=== PATIENT | male | born 1995 | race Caucasian/White ===

== ENCOUNTER 2020-01-01 17:11 | Emergency (ER) | payer MEDICAID, SELFPAY ==
[2020-01-01 17:54] VITALS: BP 101/70; PULSE 100; RESP 16; O2SAT 98; BMI 32.3
[2020-01-01 18:00] LABS: Adenovirus,PCR Not Detected (NotDetected); Bordetella Pertussis Not Detected (NotDetected); Chlamydophila Pneumoniae, PCR Not Detected (NotDetected); Coronavirus 19, PCR Not Detected (NotDetected); Coronavirus 229E Not Detected (NotDetected); Coronavirus NL63 Not Detected (NotDetected); Coronavirus OC43 Not Detected (NotDetected); Coronovirus HKU1,PCR Not Detected (NotDetected); Human Metapneumovirus Not Detected (NotDetected); Influenza A, PCR Not Detected (NotDetected); Influenza AH1, 2009 Not Detected (NotDetected); Influenza AH1, PCR Not Detected (NotDetected); Influenza AH3,PCR Not Detected (NotDetected); Influenza B, PCR Not Detected (NotDetected); Mycoplasma Pneumoniae, PCR Not Detected (NotDetected); Parainfluenza 1, PCR Not Detected (NotDetected); Parainfluenza 2, PCR Not Detected (NotDetected); Parainfluenza 3, PCR Not Detected (NotDetected); Parainfluenza 4, PCR Not Detected (NotDetected); Respiratory Syncytial Virus Not Detected (NotDetected); Rhinovirus/Enterovirus Not Detected (NotDetected)
--- NOTE | 2020-01-01 18:02 | HMH.EDUTC ---
[facility] [place] Clinical Impression: Encounter by telehealth for suspected COVID-19 Disposition: Home, Self-Care Condition on Discharge: Good Instructions: Preventing the Spread of Coronavirus Discharge Instructions Additional Instructions: *Monitor Temp, Over the counter Motrin or Tylenol as directed/as needed Tylenol every 4 hours and Motrin every 6 hours (as long as your family doctor has told you that you can take it) for fever or pain. and straight to ER if unable to lower temp less than 101.0 after medication given *Warm salt water gargles may help to soothe the throat *Throat Lozenges *Warm fluids like tea with honey may help to soothe the throat *Sleep elevated *Humidifier/Vaporizer Follow up IMMEDIATELY for new or worsening symptoms or no Noticeable improvement over the next 48-72 hours. 911 for difficulty breathing or swallowing You was tested for today for COVID19 your test result should be back in the next 24 hours, you may call tomorrow after 9am to see if your test results are back and the result You was given a handout with instructions for Self Quarantine and Self isolation for while you wait on test results and what to do if they are positive Referrals: Dameon Perry MD [Primary Care Provider] - As needed Forms: Work/School Release Time of Disposition: 18:04 Medical Decision Making - Neville Inquiry Pt receiving controlled substance: No Neville was queried for this patient: No Vital Signs: 01/01/20 17:54 Pulse Rate [Radial] 100 H Respiratory Rate 16 Blood Pressure [Right Arm] 101/70 L Blood Pressure Mean [Right Arm] 80 Blood Pressure Source [Right Arm] Automatic Cuff Blood Pressure Position [Right Arm] Sitting 02 Sat by Pulse Oximetry 98 Oxygen Delivery Method Room Air Orders (Tests/Meds): ORDERS Category Date Time Status Full Resp Panel w/COVID ([facility]) Routine Lab 01/01/20 17:42 Received [facility] [place] - General Stated complaint: COVID TEST Time Seen by Provider: 01/01/20 18:03 Mode of Arrival: Ambulatory Source of Information: Patient Limitations: No Limitations Description of Symptoms (Recalled from Triage Doc. by RN): covid test HEENT Symptoms (Recalled from RN notes): No Resp Symptoms (Recalled from RN notes): No Skin Symptoms (Recalled from RN notes): No MS Symptoms (Recalled from RN notes): No Functional Status (Recalled from RN notes): wnl - History of Present Illness Provider Complaint: Patient states that he was around someone recently at work that tested positive for COVID now his work is requiring him to get tested before he can return to work States that he hasnt had any symptoms - Related Data Previous Rx's Medication Instructions Recorded predniSONE [Prednisone 20mg 20 mg PO BID #10 tab 04/09/18 Tab] Allergies Allergy/AdvReac Type Severity Reaction Status Date / Time No Known Allergies Allergy Verified 04/09/18 21:44 - Worker's Comp Is this a Worker's Comp case?: No [facility] History - Hepatitis A Screen Drug use history?: No High risk sexual behaviors?: No History of sexually transmitted infection?: No Currently employed?: No Childcare worker?: No Do you have indoor plumbing?: Yes Do you have electricity?: Yes Attestation statement:: This patient has been screened for Hepatitis A risk factors. I have reviewed the patient's past medical history: Yes - Social History Smoking Status: Current every day smoker Alcohol Intake: never Occupational Status: employed Housing: house ROS Obtained: Yes All systems reviewed & no additional complaints, Yes Systems reviewed as appropriate & no additional complaints - Constitutional Constitutional: Reports system reviewed and no additional complaints, except as docu, Denies body ache, Denies chills, Denies fever(s), Denies headache(s) - ENT Ears, Nose, Mouth, and Throat: Reports system reviewed and no additional complaints, except as docu - Cardiovascular Cardiovascular: Repor
[2020-01-01 18:45] VITALS: BP 101/70; PULSE 100; RESP 16; TEMP 36.7; O2SAT 98
== END 2020-01-01 18:46 | disposition home or self-care (01) ==
PROVIDERS: Emergency Provider Nurse Practitioner
DX: Z20.828 Contact with and (suspected) exposure to other viral communicable diseases (principal)
CPT/HCPCS: 87581; 87633; 87798; 99201; U0003

== ENCOUNTER 2020-02-11 12:14 | Emergency (ER) | payer MEDICAID, SELFPAY ==
[2020-02-11 13:10] VITALS: BP 103/87; PULSE 76; RESP 18; TEMP 36.7; O2SAT 99; BMI 32.1
[2020-02-11 13:14] VITALS: BP 103/87; PULSE 76; RESP 18; TEMP 36.9; O2SAT 99
--- NOTE | 2020-02-11 13:15 | HMH.EDUTC ---
[facility] Disposition Clinical Impression: Exposure to COVID-19 virus Disposition: Home, Self-Care Condition on Discharge: Good Instructions: Preventing the Spread of Coronavirus Discharge Instructions Additional Instructions: *Monitor Temp, Over the counter Motrin or Tylenol as directed/as needed Tylenol every 4 hours and Motrin every 6 hours (as long as your family doctor has told you that you can take it) for fever or pain. and straight to ER if unable to lower temp less than 101.0 after medication given *Warm salt water gargles may help to soothe the throat *Throat Lozenges *Warm fluids like tea with honey may help to soothe the throat *Sleep elevated *Humidifier/Vaporizer Follow up IMMEDIATELY for new or worsening symptoms or no Noticeable improvement over the next 48-72 hours. 911 for difficulty breathing or swallowing You were tested for today for COVID19 your test result should be back in the next 24-48 hours, you may call to the [facility] to see if your test results are back in the next 48 hours [phone] [facility] hours are 9am-9pm You was given a handout with instructions for Self Quarantine and Self isolation for while you wait on test results and what to do if they are positive If you are positive the Health Dept will be contacting you also Referrals: Dameon Perry MD [Primary Care Provider] - As needed Forms: Work/School Release Time of Disposition: 13:17 Medical Decision Making - Neville Inquiry Pt receiving controlled substance: No Neville was queried for this patient: No Vital Signs: 02/11/20 13:10 02/11/20 13:14 Temperature 98.1 F 98.4 F Temperature Source Oral Pulse Rate 76 Pulse Rate [Left] 76 Respiratory Rate 18 18 Blood Pressure 103/87 L Blood Pressure [Right Arm] 103/87 L Blood Pressure Mean [Right Arm] 92 Blood Pressure Source [Right Arm] Automatic Cuff Blood Pressure Position [Right Arm] Sitting 02 Sat by Pulse Oximetry 99 Oxygen Delivery Method Room Air Orders (Tests/Meds): ORDERS Category Date Time Status Covid-19 Nasal PCR Sendout Yuri Stat Lab 02/11/20 13:02 Ordered [facility] HPI - General Stated complaint: Covid test Time Seen by Provider: 02/11/20 13:15 Mode of Arrival: Ambulatory Source of Information: Patient Limitations: No Limitations Description of Symptoms (Recalled from Triage Doc. by RN): Covid test- Possible exposure asymptomatic HEENT Symptoms (Recalled from RN notes): No Resp Symptoms (Recalled from RN notes): No Skin Symptoms (Recalled from RN notes): No MS Symptoms (Recalled from RN notes): No Functional Status (Recalled from RN notes): wnl - History of Present Illness Provider Complaint: Patient states that he was recently exposed to COVID by someone that he works with and his finace hangs around state that he is not having any symptoms but they want him to get checked before he can come back to work - Related Data Previous Rx's Medication Instructions Recorded predniSONE [Prednisone 20mg 20 mg PO BID #10 tab 04/09/18 Tab] Allergies Allergy/AdvReac Type Severity Reaction Status Date / Time No Known Allergies Allergy Verified 02/11/20 13:13 - Worker's Comp Is this a Worker's Comp case?: No Is this an [place] Worker's Comp?: No Is this a [place] Worker's Comp?: No [facility] History - Hepatitis A Screen Drug use history?: No High risk sexual behaviors?: No History of sexually transmitted infection?: No Currently employed?: No Childcare worker?: No Do you have indoor plumbing?: Yes Do you have electricity?: Yes Attestation statement:: This patient has been screened for Hepatitis A risk factors. I have reviewed the patient's past medical history: Yes - Social History Smoking Status: Current every day smoker Alcohol Intake: never Occupational Status: unemployed Housing: house ROS Obtained: Yes All systems reviewed & no additional complaints, Yes Systems reviewed as appropriate & no additional complaints -
[2020-02-12 12:52] LABS: Covid-19 Nasal PCR Sendout Lex Not Detected
== END 2020-02-11 13:27 | disposition home or self-care (01) ==
PROVIDERS: Emergency Provider Nurse Practitioner
DX: Z20.828 Contact with and (suspected) exposure to other viral communicable diseases (principal)
CPT/HCPCS: 99201; U0004

== ENCOUNTER 2021-04-15 08:50 | Emergency (ER) | payer MEDICAID, SELFPAY ==
[2021-04-15 08:53] VITALS: BP 115/46; PULSE 73; RESP 16; TEMP 36.8; O2SAT 98; BMI 33.8
--- NOTE | 2021-04-15 08:59 | HMH.EDGENADL ---
ED Disposition Clinical Impression: Gastritis Qualifiers: Gastritis type: other gastritis Chronicity: acute Gastritis bleeding: with bleeding Qualified Code(s): K29.01 - Acute gastritis with bleeding Disposition: Home, Self-Care Condition on Discharge: Good Instructions: Acute Abdominal Pain, Gastritis Additional Instructions: follow up general surgery Dr mcknight call for appt Prescriptions: Sucralfate [Carafate 1gm Tab] 1 gm PO ACHS 7 Days #15 tab Transmission Status: Pending to [id number] Pantoprazole Sodium [Protonix 40mg tablet] 40 mg PO DAILY #30 tab Transmission Status: Pending to [id number] Ondansetron [Zofran 4mg ODT] 4 mg PO TIDP PRN #15 tab PRN Reason: Nausea Transmission Status: Pending to [id number] Referrals: Provider,Referral, [Primary Care Provider] - - Critical Care Critical Care Time: No Attestation: On , the high probability of a clinically significant, sudden or life threatening deterioration of the following system(s) required my full and direct attention, intervention and personal management. The time I documented below is in addition to time spent performing reported procedures but includes the following listed in this critical care notation. Medical Decision Making - Medical Records Medical records reviewed: Yes: I reviewed the patient's medical records. - Neville Inquiry Pt receiving controlled substance: No Vital Signs: 04/15/21 08:53 04/15/21 09:00 Temperature 98.3 F Temperature Source Oral Pulse Rate 81 Pulse Rate [Radial] 73 Respiratory Rate 16 18 Blood Pressure 115/46 L Blood Pressure [Right Arm] 115/46 L Blood Pressure Mean 88 Blood Pressure Mean [Right Arm] 69 Blood Pressure Position [Right Arm] Sitting 02 Sat by Pulse Oximetry 98 98 Oxygen Delivery Method Room Air - Lab Data Lab Results 04/15/21 09:15: WBC 7.5, RBC 5.09, Hgb 15.4, Hct 46.2, MCV 90.7, MCH 30.2, MCHC 33.3, RDW 13.4, Plt Count 229, MPV 8.5, Neut % (Auto) 56.8, Lymph % (Auto) 31.0, Rice % (Auto) 8.2, Eos % (Auto) 1.7, Baso % (Auto) 2.3 H, Neut # (Auto) 4.3, Lymph # (Auto) 2.3, Rice # (Auto) 0.6, Eos # (Auto) 0.1, Baso # (Auto) 0.2 04/15/21 09:15: Sodium 136, Potassium 4.5, Chloride 105, Carbon Dioxide 23, Anion Gap 12.5, BUN 15, Creatinine 0.80, Estimated Creat Clear 212, Estimated GFR 117, Est GFR ( Amer) 141, Glucose 93, Calcium 8.9, Total Bilirubin 0.5, AST 42, ALT 36, Alkaline Phosphatase 87, Total Protein 7.0, Albumin 4.4, Globulin 2.6, Albumin/Globulin Ratio 1.7, Lipase 76 Result diagrams: 04/15/21 09:15 04/15/21 09:15 Orders (Tests/Meds): ED MEDICATIONS Discontinued Medications Generic Name Dose Route Start Last Admin Trade Name Freq PRN Reason Stop Dose Admin Belladonna Alkaloids 60 ml 04/15/21 08:59 04/15/21 09:08 Gi Cocktail 60ml Udc PO 04/15/21 09:00 60 ml ONCE ONE Administration Ondansetron HCl 8 mg 04/15/21 08:59 04/15/21 09:08 Ondansetron 4mg Odt SL 04/15/21 09:00 8 mg ONCE ONE Administration General Adult HPI - General Stated complaint: stomach pains, vomiting/blood Time Seen by Provider: 04/15/21 08:59 Source of Information: Patient Limitations: No Limitations - History of Present Illness HPI narrative: nausea with bloody vomit x1 this am, epigastric discomfort, h/o ulcers Onset (ago): hour(s) Location: abdomen Radiation: non-radiation Severity: moderate Consistency: other (improved) Relieving factors: none Exacerbating factors: none Associated symptoms: denies other symptoms - Related Data Previous Rx's Medication Instructions Recorded predniSONE [Prednisone 20mg 20 mg PO BID #10 tab 04/09/18 Tab] Ondansetron [Zofran 4mg ODT] 4 mg PO TIDP PRN #15 tab 04/15/21 Pantoprazole Sodium [Protonix 40mg 40 mg PO DAILY #30 tab 04/15/21 tablet] Sucralfate [Carafate 1gm Tab] 1 gm PO ACHS 7 Days #15 tab 04/15/21 Allergies Allergy/AdvReac Type
[2021-04-15 09:00] VITALS: BP 115/46; PULSE 81; RESP 18; O2SAT 98
[2021-04-15 09:44] LABS: Basophils # 0.2 K/mm3 (0-0.2); Basophils % 2.3 % (0.1-2.0); Eosinophils # 0.1 K/mm3 (0.0-0.4); Eosinophils % 1.7 % (0.1-12.0); Hematocrit 46.2 % (42.0-52.0); Hemoglobin 15.4 g/dL (14.1-18.0); Lymphocytes # 2.3 K/mm3 (0.7-4.5); Mean Corpuscular HGB Conc 33.3 g/dL (31.8-35.4); Mean Corpuscular Hemoglobin 30.2 pg (27.0-31.2); Mean Corpuscular Volume 90.7 fl (80-94); Mean Platelet Volume 8.5 fl (7.4-10.4); Monocytes # 0.6 K/mm3 (0.1-1.0); Monocytes % 8.2 % (1.7-9.3); Neutrophils # 4.3 K/mm3 (1.8-7.8); Neutrophils % 56.8 % (37.0-80.0); Platelet Count 229 K/mm3 (142-424); Red Blood Count 5.09 M/mm3 (4.60-6.20); Red Cell Distribution Width 13.4 % (11.5-17.5); White Blood Count 7.5 K/mm3 (4.8-10.8)
[2021-04-15 09:45] LABS: Chloride 105 mmol/L (98-107); Sodium 136 mmol/L (136-145)
[2021-04-15 09:46] LABS: Potassium 4.5 mmoL/L (3.5-5.1)
[2021-04-15 09:48] LABS: Alanine Aminotransferase 36 U/L (12-78); Alkaline Phosphatase 87 U/L (38-126); Anion Gap 12.5 mEq/L (5-15); Aspartate Amino Transferase 42 U/L (17-59); Bilirubin,Total 0.5 mg/dl (0.2-1.3); Blood Urea Nitrogen 15 mg/dl (9-20); Carbon Dioxide 23 mmol/L (22.0-30.0); Creatinine Clearance Estimated 212 mL/min (50-200); Estimated Glomerular Filt Rate 117 ml/min (>60); GFR (African American) 141 ML/MIN (>60); Lipase 76 U/L (23-300)
[2021-04-15 09:49] LABS: Albumin Level 4.4 g/dl (3.5-5.0); Albumin/Globulin Ratio 1.7 (1.1-1.8); Calcium 8.9 mg/dl (8.4-10.2); Globulin 2.6 g/dL (1.3-3.2); Glucose 93 mg/dl (74-100)
[2021-04-15 10:25] VITALS: BP 139/74; PULSE 78; RESP 16; TEMP 36.6; O2SAT 98
== END 2021-04-15 10:26 | disposition home or self-care (01) ==
PROVIDERS: Emergency Provider Emergency Medicine
DX: K29.01 Acute gastritis with bleeding (principal); F17.210 Nicotine dependence, cigarettes, uncomplicated
CPT/HCPCS: 80053; 83690; 85025; 99281

== ENCOUNTER 2021-05-18 09:11 | Emergency (ER) | payer MEDICAID, SELFPAY ==
[2021-05-18 09:15] VITALS: BP 112/86; PULSE 68; RESP 20; TEMP 36.7; O2SAT 97; BMI 35.3
--- NOTE | 2021-05-18 09:44 | HMH.EDUTC ---
[facility] [place] Clinical Impression: Sinusitis Qualifiers: Sinusitis location: unspecified location Chronicity: acute Recurrence: non-recurrent Qualified Code(s): J01.90 - Acute sinusitis, unspecified Disposition: Home, Self-Care Condition on Discharge: Good Instructions: DI for Sinusitis Additional Instructions: Drink plenty of fluids. Take tylenol or ibuprofen for pain or fever. Take the medications as directed. Follow up with your regular doctor. GO TO THE ER FOR ANY WORSENING SYMPTOMS Prescriptions: Brompheniramine/Pseudoephed/Dm [Bromfed Dm Cough Syrup] 5 ml PO Q6HP PRN #240 ml PRN Reason: Cough Transmission Status: Received by [id number] Amoxicillin/Potassium Clav [Amox-Clav 875-125 mg Tablet] 1 tab PO BID #20 tab Transmission Status: Received by [id number] methylPREDNISolone [Medrol] 4 mg PO DIRECTED 6 Days #21 packet Transmission Status: Received by [id number] guaiFENesin [Mucinex 600mg tablet] 1 - 2 tab PO BIDP PRN #30 tab PRN Reason: Congestion Transmission Status: Received by [id number] Referrals: Provider,Referral, [Primary Care Provider] - Forms: Work/School Release Time of Disposition: 09:46 Medical Decision Making - Medical Records Medical records reviewed: No: I reviewed the patient's medical records. - Neville Inquiry Pt receiving controlled substance: No Vital Signs: 05/18/21 09:15 05/18/21 09:47 Temperature 98.1 F 98.1 F Temperature Source Oral Pulse Rate 68 Pulse Rate [Left Brachial] 68 Respiratory Rate 20 20 Blood Pressure 112/86 Blood Pressure [Left Arm] 112/86 Blood Pressure Mean [Left Arm] 94 Blood Pressure Source [Left Arm] Automatic Cuff Blood Pressure Position [Left Arm] Sitting 02 Sat by Pulse Oximetry 97 Oxygen Delivery Method Room Air - Lab Data Lab results reviewed: Yes: I reviewed the patient's lab results. [facility] [place] - General Stated complaint: possible sinus infection Time Seen by Provider: 05/18/21 09:15 Mode of Arrival: Ambulatory Source of Information: Patient Limitations: No Limitations Description of Symptoms (Recalled from Triage Doc. by RN): PATIENT C/O SINUS PRESSURE, HEADACHE, GREEN-BROWN SINUS DRAINAGE, AND COUGH X 3 DAYS HEENT Symptoms (Recalled from RN notes): Yes Resp Symptoms (Recalled from RN notes): Yes Skin Symptoms (Recalled from RN notes): No MS Symptoms (Recalled from RN notes): No Functional Status (Recalled from RN notes): WNL - History of Present Illness Provider Complaint: She c/o a cough with yellowish sputum for the past 3 days. - Related Data Previous Rx's Medication Instructions Recorded Amoxicillin/Potassium Clav 1 tab PO BID #20 tab 05/18/21 [Amox-Clav 875-125 mg Tablet] Brompheniramine/Pseudoephed/Dm 5 ml PO Q6HP PRN #240 ml 05/18/21 [Bromfed Dm Cough Syrup] guaiFENesin [Mucinex 600mg tablet] 1 - 2 tab PO BIDP PRN #30 tab 05/18/21 methylPREDNISolone [Medrol] 4 mg PO DIRECTED 6 Days #21 05/18/21 packet Allergies Allergy/AdvReac Type Severity Reaction Status Date / Time No Known Allergies Allergy Verified 02/11/20 13:13 - Worker's Comp Is this a Worker's Comp case?: No [facility] History - Hepatitis A Screen Drug use history?: No High risk sexual behaviors?: No History of sexually transmitted infection?: No Currently employed?: No Childcare worker?: No Do you have indoor plumbing?: Yes Do you have electricity?: Yes Attestation statement:: This patient has been screened for Hepatitis A risk factors. I have reviewed the patient's past medical history: Yes - Social History Smoking Status: Never smoker Tobacco Type: smokeless tobacco # Packs/Day (cigarettes): 0 Alcohol Intake: never Occupational Status: other Housing: house ROS Obtained: Yes All systems reviewed & no additional complaints - Constitutional Constitutional: Reports as per HPI - Eyes Eyes: Denies eye discharge - ENT Ears, Nose, Mouth, and
[2021-05-18 09:47] VITALS: BP 112/86; PULSE 68; RESP 20; TEMP 36.7; O2SAT 97
== END 2021-05-18 09:50 | disposition home or self-care (01) ==
PROVIDERS: Emergency Provider Nurse Practitioner Family
DX: J01.90 Acute sinusitis, unspecified (principal); F17.290 Nicotine dependence, other tobacco product, uncomplicated
CPT/HCPCS: 99212; G0463

== ENCOUNTER 2021-06-04 09:19 | Emergency (ER) | payer MEDICAID, SELFPAY ==
[2021-06-04 09:19] VITALS: BP 129/61; RESP 18; TEMP 36.7; O2SAT 95; BMI 34.9
[2021-06-04 09:47] LABS: UTC Influenza A Antigen Negative (Negative); UTC Influenza B Antigen Negative (Negative)
[2021-06-04 09:58] LABS: Strep Scrn Group A (Rapid) Positive (Negative)
--- NOTE | 2021-06-04 10:24 | HMH.EDUTC ---
[facility] [place] Clinical Impression: Strep throat Disposition: Home, Self-Care Condition on Discharge: Good Instructions: Strep Throat, DI for Strep Throat Additional Instructions: Drink plenty of fluids. Take tylenol or ibuprofen for pain or fever. Take the medications as directed. Follow up with your regular doctor. GO TO THE ER FOR ANY WORSENING SYMPTOMS Throw your tooth brush away and get a new one. Prescriptions: Brompheniramine/Pseudoephed/Dm [Bromfed Dm Cough Syrup] 5 ml PO Q6HP PRN #240 ml PRN Reason: Cough Transmission Status: Received by [facility] #[id number] Ondansetron [Zofran 4mg ODT] 4 mg PO Q8HP PRN #20 tab PRN Reason: Nausea Transmission Status: Received by [facility] #[id number] Amoxicillin/Potassium Clav [Amox-Clav 875-125 mg Tablet] 1 tab PO BID #20 tab Transmission Status: Received by [facility] #[id number] Referrals: Provider,Referral, MD [Primary Care Provider] - Forms: Work/School Release Time of Disposition: 10:29 Medical Decision Making - Medical Records Medical records reviewed: No: I reviewed the patient's medical records. - Neville Inquiry Pt receiving controlled substance: No Vital Signs: 06/04/21 09:19 Temperature 98.1 F Temperature Source Oral Respiratory Rate 18 Blood Pressure [Right Arm] 129/61 Blood Pressure Mean [Right Arm] 83 Blood Pressure Source [Right Arm] Automatic Cuff Blood Pressure Position [Right Arm] Sitting 02 Sat by Pulse Oximetry 95 Oxygen Delivery Method Room Air - Lab Data Lab results reviewed: Yes: I reviewed the patient's lab results. Lab Results 06/04/21 09:31: Influenza Type A Ag Negative, Influenza Type B Ag Negative 06/04/21 09:32: Group A Strep Rapid Positive A [facility] [place]PI - General Stated complaint: sore throat, bodyacges, vomiting, BRIGGS, fever Time Seen by Provider: 06/04/21 09:35 Mode of Arrival: Ambulatory Source of Information: Patient Limitations: No Limitations Description of Symptoms (Recalled from Triage Doc. by RN): Pt stated that he has sore eyes, sore throat, cough, vomiting, slight fever, vomiting tuesday. Migraine on tuesday. HEENT Symptoms (Recalled from RN notes): Yes Resp Symptoms (Recalled from RN notes): Yes Skin Symptoms (Recalled from RN notes): No MS Symptoms (Recalled from RN notes): No Functional Status (Recalled from RN notes): n/a - History of Present Illness Provider Complaint: He c/o sore throat, low grade fever and a cough. He has felt bad for the past 2 days. He has n/v also. - Related Data Previous Rx's Medication Instructions Recorded Amoxicillin/Potassium Clav 1 tab PO BID #20 tab 06/04/21 [Amox-Clav 875-125 mg Tablet] Brompheniramine/Pseudoephed/Dm 5 ml PO Q6HP PRN #240 ml 06/04/21 [Bromfed Dm Cough Syrup] Ondansetron [Zofran 4mg ODT] 4 mg PO Q8HP PRN #20 tab 06/04/21 Allergies Allergy/AdvReac Type Severity Reaction Status Date / Time No Known Allergies Allergy Verified 06/04/21 09:42 - Worker's Comp Is this a Worker's Comp case?: No [facility] History - Hepatitis A Screen Drug use history?: No High risk sexual behaviors?: No History of sexually transmitted infection?: No Currently employed?: No Childcare worker?: No Do you have indoor plumbing?: Yes Do you have electricity?: Yes Attestation statement:: This patient has been screened for Hepatitis A risk factors. I have reviewed the patient's past medical history: Yes - Social History Smoking Status: Never smoker Tobacco Type: smokeless tobacco # Packs/Day (cigarettes): 0 Alcohol Intake: never Occupational Status: other Housing: house ROS Obtained: Yes All systems reviewed & no additional complaints - Constitutional Constitutional: Reports as per HPI - Eyes Eyes: Denies eye discharge - ENT Ears, Nose, Mouth, and Throat: Reports as per HPI - Cardiovascular Cardiovascular: Denies chest pain - Respiratory Respiratory: Reports chest congestion,
[2021-06-04 10:55] VITALS: BP 129/61; PULSE 85; RESP 18; TEMP 36.7; O2SAT 95
== END 2021-06-04 10:55 | disposition home or self-care (01) ==
PROVIDERS: Emergency Provider Nurse Practitioner Family
DX: J02.0 Streptococcal pharyngitis (principal)
CPT/HCPCS: 87430; 87804; 99212; G0463

== ENCOUNTER 2021-11-11 20:55 | Emergency (ER) | payer MEDICAID, SELFPAY ==
[2021-11-11 20:56] VITALS: BP 120/69; PULSE 101; RESP 20; TEMP 37.7; O2SAT 99; BMI 34.1
[2021-11-11 21:53] VITALS: BMI 34.1
[2021-11-11 21:54] VITALS: BMI 34.1
--- NOTE | 2021-11-11 21:59 | XR_ITS ---
PROCEDURE INFORMATION: Exam: XR Chest Exam date and time: 11/11/2021 10:30 PM Age: 26 years old Clinical indication: Fever TECHNIQUE: Imaging protocol: Radiologic exam of the chest. Views: 2 views. COMPARISON: No relevant prior studies available. FINDINGS: Lungs: No focal consolidation. Pleural spaces: No pleural effusion. No pneumothorax. Heart/Mediastinum: Unremarkable cardiomediastinal silhouette. Bones/joints: No acute osseous findings. IMPRESSION: No focal consolidation.
--- NOTE | 2021-11-11 21:59 | CT_ITS ---
PROCEDURE INFORMATION: Exam: CT Abdomen And Pelvis With Contrast Exam date and time: 11/11/2021 10:39 PM Age: 26 years old Clinical indication: Fever and nausea and vomiting; Patient HX: PT C/O decreased appetite, n/v, upper abd pain/tightness. ; Additional info: Fever, n/v, L upper thigh nodule TECHNIQUE: Imaging protocol: Computed tomography of the abdomen and pelvis with contrast. Radiation optimization: All CT scans at this facility use at least one of these dose optimization techniques: automated exposure control; mA and/or kV adjustment per patient size (includes targeted exams where dose is matched to clinical indication); or iterative reconstruction. Contrast material: ISOVUE; Contrast volume: 75 ml; Contrast route: IV; COMPARISON: CR XR CHEST 2V 11/11/2021 10:30 PM FINDINGS: Liver: Multiple hepatic cysts and too small to characterize hepatic hypodensities. Gallbladder and bile ducts: No calcified stones. No ductal dilation. Pancreas: No ductal dilation. No peripancreatic inflammatory changes. Spleen: Unremarkable. Adrenal glands: No mass. Kidneys and ureters: No hydronephrosis. Stomach and bowel: Inflammatory changes surrounding gastroesophageal junction, nonspecific, probably infectious or inflammatory. Appendix: Unremarkable appendix. Intraperitoneal space: No free air. No ascites Vasculature: No abdominal aortic aneurysm. Lymph nodes: Left inguinal lymphadenopathy, moderate, inflammatory changes in the left inguinal region. [id number] upper abdominal lymphadenopathy. Prominent mesenteric lymph nodes. Urinary bladder: Unremarkable as visualized. Reproductive: The prostate is normal in size. Bones/joints: No suspicious osseous lesion. No acute fracture. Scattered degenerative changes. Soft tissues: No suspicious mass. IMPRESSION: 1. Multiple hepatic cysts and too small to characterize hepatic hypodensities. Consider correlation with MR for definitive characterization. 2. Left inguinal lymphadenopathy, moderate, inflammatory changes in the left inguinal region. Further evaluation as clinically indicated. Recommend imaging follow-up until complete resolution. 3. [id number] upper abdominal lymphadenopathy. Recommend imaging follow-up until complete resolution as malignancy may have a similar appearance. 4. Inflammatory changes surrounding gastroesophageal junction, nonspecific, probably infectious or inflammatory. Further evaluation as clinically indicated., further evaluation with endoscopy may be helpful.
--- NOTE | 2021-11-11 22:12 | HMH.EDFEV ---
Discharge Plan Disposition Patient Disposition: Home, Self-Care Prescriptions Prescriptions: New minocycline 100 mg Capsule 100 mg PO BID Qty: 20 0RF No Action ondansetron 4 MG tablet,disintegrating 4 mg PO Q8HP PRN (Reason: Nausea) Qty: 20 0RF mdeskocprxzbglw-dwtzszwbh-EI 118 ML syrup 5 ml PO Q6HP PRN (Reason: Cough) Qty: 240 0RF amoxicillin-pot clavulanate 1 EACH tablet 1 tab PO BID Qty: 20 0RF Referrals Follow up/Referrals: Provider,Referral, MD [Primary Care Provider] - See instructions Clinical Impressions Clinical Impression: Lymphadenopathy Instructions Patient Instructions: DI for Lymphadenopathy Discharge ED Provider: Salbador Gresham Fever HPI General Chief Complaint: Fever Stated Complaint: bump on L thigh and poss fever Time Seen by Provider: 11/11/21 22:12 Mode of Arrival: Family Vehicle Source of Information: Patient and Medical Record Limitations: No Limitations Description of Symptoms (Recalled from ER Triage Doc. by RN): Pt c/o fever, n/v, headache, body ache, and L upper thigh nodle that have been present since Tuesday. He has taken tylenol intermittently and last dose Friday 11/10. History of Present Illness HPI Narrative: fever and achey with tender lt inguinal area over the last few days - no known tick bite - no open area to lower ext MD complaint: fever Onset (ago): day(s) Associated symptoms: denies other symptoms Relieving factors: acetaminophen Treatments prior to arrival fever: acetaminophen Related Data Previous Rx's Medication Instructions Recorded amoxicillin 875 mg-potassium 1 tab PO BID #20 tabs 06/04/21 clavulanate 125 mg tablet rmnbeuuyzdawbkw-vhagcdodxfbcxhu-SA 5 ml PO Q6HP PRN Cough #240 mL 06/04/21 2 mg-30 mg-10 mg/5 mL oral syrup ondansetron 4 mg disintegrating 4 mg PO Q8HP PRN Nausea #20 tabs 06/04/21 tablet minocycline 100 mg capsule 100 mg PO BID #20 caps 11/11/21 Allergies Allergy/AdvReac Type Severity Reaction Status Date / Time No Known Allergies Allergy Verified 06/04/21 09:42 [facility] Social History (System 01/10/20 @ 16:08 by Pili Red) Smoking Status: Current every day smoker tobacco type: smokeless tobacco second hand exposure: No alcohol intake: never current occupational status: other Travel in the last 8 weeks: None housing: house ROS Obtained: Yes All systems reviewed & no additional complaints except as documented Constitutional Constitutional: Reports fever(s) and Reports malaise Eyes Eyes: Denies eye discharge ENT Ears, Nose, Mouth, and Throat: Denies neck mass Cardiovascular Cardiovascular: Denies chest pain Respiratory Respiratory: Denies shortness of breath Gastrointestinal Gastrointestingal: Denies abdominal pain or heartburn Genitourinary Male Genitourinary: Denies genital lesions, Denies penile discharge, Denies scrotal swelling and Denies testicular mass Musculoskeletal Musculoskeletal: Denies joint swelling Integumentary/Breasts Skin/Breast: Denies unusual bruising Neurologic Neurologic: Denies behavioral changes Hematologic/Lymphatic Henatologic/Lymphatic: Reports lymphadenopathy Physical Exam General General appearance: alert and in no apparent distress Head Head exam: normocephalic Eye Eye exam: Present PERRL and EOMI; Absent scleral icterus ENT ENT exam: Present mucous membranes dry Neck Neck exam: Present full ROM and trachea midline Respiratory Respiratory exam: Present normal lung sounds bilaterally; Absent respiratory distress Cardiovascular Cardiovascular exam: Present regular rate; Absent systolic murmur Abdominal Exam Abdominal exam: Present soft; Absent organomegaly exam: Absent urethral discharge Expanded Exam exam: Absent lesions or inguinal hernia Extremities Exam Extremities exam: Absent calf tenderness Back Exam Back exam: Absent CVA tenderness (L) Neurological Exam Neurological exam: Present alert, oriented X3 and CN II-XII intac
[2021-11-11 22:59] LABS: Basophils # 0.2 K/mm3 (0-0.2); Basophils % 1.1 % (0.1-2.0); Eosinophils # 0.3 K/mm3 (0.0-0.4); Eosinophils % 1.9 % (0.1-12.0); Hematocrit 42.8 % (42.0-52.0); Hemoglobin 14.2 g/dL (14.1-18.0); Lymphocytes # 2.9 K/mm3 (0.7-4.5); Lymphocytes % 20.5 % (10-50); Mean Corpuscular HGB Conc 33.1 g/dL (31.8-35.4); Mean Corpuscular Hemoglobin 29.6 pg (27.0-31.2); Mean Corpuscular Volume 89.6 fl (80-94); Mean Platelet Volume 8.2 fl (7.4-10.4); Monocytes # 0.9 K/mm3 (0.1-1.0); Monocytes % 6.5 % (1.7-9.3); Neutrophils # 9.8 K/mm3 (1.8-7.8); Platelet Count 227 K/mm3 (142-424); Red Blood Count 4.78 M/mm3 (4.60-6.20); Red Cell Distribution Width 12.9 % (11.5-17.5)
[2021-11-11 23:02] LABS: Alanine Aminotransferase 37 U/L (12-78); Albumin Level 4.2 g/dl (3.5-5.0); Albumin/Globulin Ratio 1.3 (1.1-1.8); Alkaline Phosphatase 103 U/L (38-126); Anion Gap 12.7 mEq/L (5-15); Aspartate Amino Transferase 32 U/L (17-59); Bilirubin,Total 0.3 mg/dl (0.2-1.3); Blood Urea Nitrogen 10 mg/dl (9-20); Calcium 8.3 mg/dl (8.4-10.2); Carbon Dioxide 28 mmol/L (22.0-30.0); Chloride 103 mmol/L (98-107); Creatinine Clearance Estimated 188 mL/min (50-200); Estimated Glomerular Filt Rate 101 ml/min (>60); GFR (African American) 122 ML/MIN (>60); Globulin 3.3 g/dL (1.3-3.2); Glucose 78 mg/dl (74-100); Potassium 3.7 mmoL/L (3.5-5.1); Sodium 140 mmol/L (136-145); Total Protein,Serum 7.5 g/dl (6.3-8.2)
[2021-11-11 23:07] LABS: C-Reactive Protein 68.9 mg/L (0-4)
[2021-11-11 23:55] LABS: Microscopic, Urine URINE MICROSCOPIC (MICROSCOPIC)
[2021-11-11 23:56] LABS: Appearance,Urine CLEAR (Clear); Bilirubin,Urine Negative (Negative); Blood, Urine Negative (Negative); Color,Urine YELLOW (Yellow); Glucose,Urine (UA) Negative (Negative); Ketones,Urine Negative (Negative); Leukocyte Esterase,Urine Negative (Negative); Nitrate,Urine Negative (Negative); Protein,Urine Negative (Negative)
[2021-11-11 23:59] LABS: Squamous Epithelial Cell,Urine Occasional #/hpf (0-5); WBC,Urine Occasional #/hpf (0-3)
[2021-11-12 00:01] LABS: Erythrocyte Sedimentation Rate 45 mm/hr (0-15)
[2021-11-12 00:15] VITALS: BP 134/76; PULSE 88; RESP 16; TEMP 36.6; O2SAT 99
[2021-11-13 22:07] LABS: Rocky Mtn Spotted Fever, IgM 0.38 index (0.00-0.89)
[2021-11-16 22:13] LABS: RMSF, IgG, EIA Negative (Negative)
[2021-11-17 23:38] LABS: Lyme B. burgdorferi PCR Blood Negative (Negative)
== END 2021-11-12 00:18 | disposition home or self-care (01) ==
PROVIDERS: Emergency Provider Emergency Medicine
DX: R59.1 Generalized enlarged lymph nodes (principal)
CPT/HCPCS: 71046; 74177; 80053; 81001; 84145; 85025; 85651; 86140; 86609; 87476; 96365; 96375; 99284; J2405; Q9967

== ENCOUNTER 2022-01-12 13:12 | Emergency (ER) | payer MEDICAID, SELFPAY ==
[2022-01-12 14:45] VITALS: BP 131/86; PULSE 91; RESP 17; TEMP 37.9; O2SAT 100; BMI 34.4
[2022-01-12 15:08] LABS: UTC Influenza A Antigen Positive (Negative); UTC Influenza B Antigen Negative (Negative)
--- NOTE | 2022-01-12 15:12 | EXP.UTC ---
Discharge Plan Disposition Patient Disposition: Home, Self-Care Condition: Good Prescriptions Prescriptions: New oseltamivir [Tamiflu] 75 mg capsule 75 mg PO BID 5 Days Qty: 10 0RF ondansetron 4 mg tablet,disintegrating 4 mg PO Q8H PRN (Reason: nausea and vomiting) Qty: 10 0RF No Action minocycline 100 mg Capsule 100 mg PO BID Qty: 20 0RF ondansetron 4 MG tablet,disintegrating 4 mg PO Q8HP PRN (Reason: Nausea) Qty: 20 0RF guczpyjxpqzkrvo-thqqxhuav-DE 118 ML syrup 5 ml PO Q6HP PRN (Reason: Cough) Qty: 240 0RF amoxicillin-pot clavulanate 1 EACH tablet 1 tab PO BID Qty: 20 0RF Referrals Follow up/Referrals: Provider,Referral, MD [Primary Care Provider] - See instructions Activity Restrictions/Add. Instructions Additional Instructions/Restrictions: Start Tamiflu today if you are going to take it. Discussed risk and possible benefits. Lots of rest Increase Fluids water, Gatorade, powerade, pedialyte,if /toddler/child Alternate Tylenol and / or ibuprofen as discussed for fever, aches, chills Follow up IMMEDIATELY with your family doctor for new or worsening Symptoms OR no noticeable improvement over the next 48-72 hours, 911 for difficulty or breathing You or your child area contagious until no fever, aches, chills for 24 hours with medication for symptoms Help Prevent the spread of influenza: ?Wash your hands often. Use soap and water. Wash your hands after you use the bathroom, change a child's diapers, or sneeze. Wash your hands before you prepare or eat food. Use gel hand cleanser that has 60% alcohol, when soap and water are not available. Do not touch your eyes, nose, or mouth unless you have washed your hands first. Cover your mouth when you sneeze or cough. Cough into a tissue or the bend of your arm. If you use a tissue, throw it away immediately and wash your hands. Clean shared items with a germ-killing venetian blind cleaner and repairer. Clean table surfaces, doorknobs, and light switches. Do not share towels, silverware, and dishes with people who are sick. Wash bed sheets, towels, silverware, and dishes with soap and water. Wear a mask over your mouth and nose if you are sick. The face mask may help protect others from becoming infected with the flu. Wear the mask when in common areas of your home or if you seek care with a healthcare provider. Stay away from others if you are sick. Stay at home until 24 hours after your fever and symptoms are gone. Clinical Impressions Clinical Impression: Influenza A Stand Alone Forms Stand Alone Forms: Work/School Release Instructions Patient Instructions: DI for Influenza -- Adult Discharge ED Provider: Ofelia Palencia [facility] [place] General Stated complaint: nausea, diarrhea, BRIGGS, vomiting Time Seen by Provider: 01/12/22 15:12 History of Present Illness Provider Complaint: Patient states that he has a child at home that has influenza States that he started feeling bad about a week ago but now he is having worsening of symptoms States that he has clarence having fever, chills, body aches, nasal congestion and vomiting Related Data Previous Rx's Medication Instructions Recorded amoxicillin 875 mg-potassium 1 tab PO BID #20 tabs 06/04/21 clavulanate 125 mg tablet xrwasghiqghwiwc-rxvbfvzjbvwwlzp-ZK 5 ml PO Q6HP PRN Cough #240 mL 06/04/21 2 mg-30 mg-10 mg/5 mL oral syrup ondansetron 4 mg disintegrating 4 mg PO Q8HP PRN Nausea #20 tabs 06/04/21 tablet minocycline 100 mg capsule 100 mg PO BID #20 caps 11/11/21 ondansetron 4 mg disintegrating 4 mg PO Q8H PRN nausea and 01/12/22 tablet vomiting #10 tabs oseltamivir 75 mg capsule (Tamiflu) 75 mg PO BID 5 days #10 caps 01/12/22 Allergies Allergy/AdvReac Type Severity Reaction Status Date / Time No Known Allergies Allergy Verified 06/04/21 09:42
[2022-01-12 15:24] VITALS: BP 131/86; PULSE 91; RESP 17; TEMP 37.9; O2SAT 100
== END 2022-01-12 15:34 | disposition home or self-care (01) ==
PROVIDERS: Emergency Provider Nurse Practitioner
DX: J10.1 Influenza due to other identified influenza virus with other respiratory manifestations (principal); R50.9 Fever, unspecified; R11.2 Nausea with vomiting, unspecified; R19.7 Diarrhea, unspecified; R05.9 Cough, unspecified; R51.9 Headache, unspecified; M79.10 Myalgia, unspecified site; F17.290 Nicotine dependence, other tobacco product, uncomplicated; Z79.899 Other long term (current) drug therapy
CPT/HCPCS: 87804; 99213; G0463

== ENCOUNTER 2022-04-07 14:06 | Emergency (ER) | payer MEDICAID, SELFPAY ==
[2022-04-07 14:15] VITALS: BP 135/60; PULSE 84; RESP 20; TEMP 36.9; O2SAT 95; BMI 36.4
--- NOTE | 2022-04-07 14:25 | EXP.UTC ---
Discharge Plan Disposition Patient Disposition: Home, Self-Care Condition: Good Prescriptions Prescriptions: New azithromycin [Zithromax] 250 mg tablet 250 mg PO UD DOSE PK Qty: 6 0RF Rx Instructions: Take two (2) tablets today, then one (1) tablet days #2 thru #5 methylprednisolone 4 mg Tablets,Dose Pack 4 mg PO DIRECTED Qty: 21 0RF bhwxzwjpzkmlxfv-mcdgjguwz-XS [Bromfed DM] 2-30-10 mg/5 mL Syrup 5 ml PO Q6H PRN (Reason: Cough) Qty: 240 0RF No Action minocycline 100 mg Capsule 100 mg PO BID Qty: 20 0RF ondansetron 4 MG tablet,disintegrating 4 mg PO Q8HP PRN (Reason: Nausea) Qty: 20 0RF cfttdaxguguqeym-larzvwsda-SL 118 ML syrup 5 ml PO Q6HP PRN (Reason: Cough) Qty: 240 0RF amoxicillin-pot clavulanate 1 EACH tablet 1 tab PO BID Qty: 20 0RF oseltamivir [Tamiflu] 75 mg capsule 75 mg PO BID 5 Days Qty: 10 0RF ondansetron 4 mg tablet,disintegrating 4 mg PO Q8H PRN (Reason: nausea and vomiting) Qty: 10 0RF Referrals Follow up/Referrals: Provider,Referral, MD [Primary Care Provider] - See instructions Activity Restrictions/Add. Instructions Additional Instructions/Restrictions: Drink plenty of fluids. Take tylenol or ibuprofen for pain or fever. Take the medications as directed. Follow up with your regular doctor. GO TO THE ER FOR ANY WORSENING SYMPTOMS Clinical Impressions Clinical Impression: Bronchitis, Sinusitis Stand Alone Forms Stand Alone Forms: Work/School Release Instructions Patient Instructions: Sinusitis, DI for Sinusitis, DI for Acute Bronchitis Discharge ED Provider: Toño Patterson [facility] General Stated complaint: Vomitting diarrhea congestion cough Time Seen by Provider: 04/07/22 14:25 History of Present Illness Provider Complaint: He states that for the past 2 days he has had sinus congestion, chest congestion, productive cough, chills, low grade fever, and malaise. Related Data Previous Rx's Medication Instructions Recorded amoxicillin 875 mg-potassium 1 tab PO BID #20 tabs 06/04/21 clavulanate 125 mg tablet gsrcwnvdttqkuyf-ilgwfhlekgkgxyj-PS 5 ml PO Q6HP PRN Cough #240 mL 06/04/21 2 mg-30 mg-10 mg/5 mL oral syrup ondansetron 4 mg disintegrating 4 mg PO Q8HP PRN Nausea #20 tabs 06/04/21 tablet minocycline 100 mg capsule 100 mg PO BID #20 caps 11/11/21 ondansetron 4 mg disintegrating 4 mg PO Q8H PRN nausea and 01/12/22 tablet vomiting #10 tabs oseltamivir 75 mg capsule (Tamiflu) 75 mg PO BID 5 days #10 caps 01/12/22 azithromycin 250 mg tablet 250 mg PO UD DOSE PK #6 tabs 04/07/22 (Zithromax) yknvaotykylsfzg-sdfxfdhyztqnhji-NT 5 ml PO Q6H PRN Cough #240 mL 04/07/22 2 mg-30 mg-10 mg/5 mL oral syrup (Bromfed DM) methylprednisolone 4 mg tablets in 4 mg PO DIRECTED #21 tabs 04/07/22 a dose pack Allergies Allergy/AdvReac Type Severity Reaction Status Date / Time No Known Allergies Allergy Verified 04/07/22 14:26 [facility] Disclaimer: The information contained in this section may have been updated after the patient was seen, as this information can be updated by other users. Medical History No significant past medical history Social History Smoking Status: Current every day smoker tobacco type: smokeless tobacco second hand exposure: No alcohol intake: never current occupational status: other Travel in the last 8 weeks: None housing: house ROS Obtained: Yes All systems reviewed & no additional complaints except as documented Constitutional Constitutional: Reports chills and Reports fever(s) Eyes Eyes: Denies eye discharge ENT Ears, Nose, Mouth, and Throat: Reports as per HPI Cardiovascular Cardiovascular: Denies chest pain Respiratory Respiratory: Denies chest congestion and Reports cough Gastrointestinal Gastrointestingal: Reports nausea; Denies abdominal pain, c
[2022-04-07 15:38] VITALS: BP 135/60; PULSE 84; RESP 20; TEMP 36.9; O2SAT 95
== END 2022-04-07 15:33 | disposition home or self-care (01) ==
PROVIDERS: Emergency Provider Nurse Practitioner Family
DX: J40 Bronchitis, not specified as acute or chronic (principal); J32.9 Chronic sinusitis, unspecified
CPT/HCPCS: 99212; 99213; G0463

== ENCOUNTER 2022-06-05 00:47 | Emergency (ER) | payer MEDICAID, SELFPAY ==
[2022-06-05 01:06] VITALS: BMI 33.5
--- NOTE | 2022-06-05 01:06 | PC.NURSE ---
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
--- NOTE | 2022-06-05 01:07 | XR_ITS ---
PROCEDURE INFORMATION: Exam: XR Chest Exam date and time: 06/05/2022 1:10 AM Age: 26 years old Clinical indication: Device placement; Ett placement (vent status); Additional info: Et placement TECHNIQUE: Imaging protocol: Radiologic exam of the chest. Views: 1 view. COMPARISON: CR XR CHEST 2V 11/11/2021 10:30 PM FINDINGS: Tubes, catheters and devices: Tip of the endotracheal tube appears to be in good position, just below the level of the clavicles. Airway: The romi is poorly depicted. Lungs: There is moderate right lung infiltrate versus atelectasis. Left lung appears clear. Pleural spaces: Unremarkable. No pleural effusion. No pneumothorax. Heart/Mediastinum: Unremarkable. No cardiomegaly. Bones/joints: Unremarkable. Gastrointestinal tract: There is significant gaseous distention of the stomach. IMPRESSION: Limited study due to poor depiction of the romi. ETT appears to be in good position. Moderate right lung infiltrate versus atelectasis noted.
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
== END 2022-06-05 03:52 | disposition expired ==
PROVIDERS: Emergency Provider Emergency Medicine
DX: S01.90XA Unspecified open wound of unspecified part of head, initial encounter
CPT/HCPCS: 31500; 71045; 92950; 96374; 99285